=== PATIENT | female | born 1995 | race Caucasian/White ===

== ENCOUNTER 2016-08-19 08:21 | Emergency (ER) | payer OTHER ==
[~2016-08-19] VITALS: Ht 157.5 cm; Wt 48.0 kg
[2016-08-19 08:24] VITALS: BP 118/69; PULSE 114; RESP 20; TEMP 98.8; O2SAT 95
--- NOTE | 2016-08-19 08:55 | PD ---
HPI Chief Complaint: ENT Complaint Time Seen by Provider: 08:54 Travel History International Travel<30 days: No Contact w/Intl Traveler<30days: No Traveled to known affect area: No History of Present Illness HPI 20-year-old female presents to the emergency department for evaluation of sore throat, cough, chest congestion and nausea for 2 days. Patient states that she had subjective fever yesterday. She is also complaining of pressure and congestion in her chest. Denies any recent travel or sick contacts. Denies any vomiting, diarrhea, constipation, dysuria, ear pain, eye redness or drainage. Denies , states that she is a virgin. No other complaints. PFSH Past Medical History ?: Not LMP: 07/18/16 Social History Tobacco Use: No Allergies-Medications (Allergen,Severity, Reaction): Coded Allergies: No Known Allergies (Unverified , 08/19/16) Reported Meds & Prescriptions Reported Meds & Active Scripts Active No Active Prescriptions or Reported Medications Review of Systems Except as stated in HPI: all other systems reviewed are Neg Physical Exam Narrative GENERAL: Well-nourished and well-developed pleasant female patient in no acute distress who is nontoxic appearing. SKIN: Warm and dry. HEAD: Normocephalic and atraumatic. EYES: No injection, drainage, or hyphema noted. PERRLA. EOMI. ENT: No nasal drainage noted. Oropharynx shows mildly edematous tonsils, no erythema or exudates. TMs are normal with good landmarks. NECK: Supple and the trachea is midline. CARDIOVASCULAR: Regular rate and rhythm. RESPIRATORY: Breath sounds are equal bilaterally with no accessory muscle use, wheezing, rhonchi, or crackles. GASTROINTESTINAL: Abdomen is soft, non-tender, and nondistended. MUSCULOSKELETAL: No obvious deformities, swelling, cyanosis, or ecchymosis is present throughout the upper and lower extremities. NEUROLOGICAL: Awake, alert, and oriented. Normal speech and gait. Cranial nerves are grossly intact. Data Data Last Documented VS Vital Signs Date Time Temp Pulse Resp B/P Pulse Ox O2 Delivery O2 Flow Rate FiO2 08/19/16 08:24 98.8 114 20 118/69 95 Room Air Orders Chest, Pa & Lat (08/19/16 08:54) Group A Rapid Strep Screen (08/19/16 08:54) Influenzae A/B Antigen (08/19/16 08:54) Strep Culture (Group A) (08/19/16 09:00) MDM Medical Decision Making Medical Screen Exam Complete: Yes Emergency Medical Condition: Yes Differential Diagnosis Viral illness versus URI versus influenza versus strep Narrative Course 20-year-old female presents to the emergency department for evaluation of cough and sore throat for 2 days. Patient is afebrile. She is a little tachycardic with a heart rate of 114 bpm. Physical examination is essentially unremarkable. Influenza swab is negative. Strep swab was negative. Chest x-ray is negative for any acute abnormalities. Discussed with care with the patient. Advised follow-up with her PCP. She stable for discharge. Diagnosis Primary Impression: Viral respiratory illness Referrals: Primary Care Physician Patient Instructions: General Instructions, Viral Syndrome (ED) Additional Instructions: Rest. Drink plenty of fluids. Take [id number] Tylenol or ibuprofen and estrogen on the box as needed for pain. Follow-up with your Primary Care Physician. Return to the ED for any acute worsening of symptoms. Med/Other Pt SpecificInfo: No Change to Meds Scripts No Active Prescriptions or Reported Meds Disposition: 01 DISCHARGE HOME Condition: Stable Arcelia Foreman Aug 19, 2016 08:55
--- NOTE | 2016-08-19 10:01 | RADRPT ---
EXAM DATE/TIME: 08/19/2016 09:26 [facility] COMPARISON: No previous studies available for comparison. INDICATIONS : Cough for 2 days. MEDICAL HISTORY : None. SURGICAL HISTORY : None. ENCOUNTER: Initial ACUITY: 2 days PAIN SCORE: 0/10 LOCATION: Bilateral chest FINDINGS: PA and lateral views of the chest demonstrate the lungs to be symmetrically aerated without evidence of mass, infiltrate or effusion. The cardiomediastinal contours are unremarkable. Osseous structure s are intact. CONCLUSION: No acute disease. Fito Putnam MD on August 19, 2016 at 10:00 Board Certified Radiologist. This report was verified electronically.
== END 2016-08-19 10:36 | disposition home or self-care (01) ==
LOC: NED 08:21 → NEPB 10:36
DX: B34.9 Viral infection, unspecified (principal)
CPT/HCPCS: 71020; 87081; 87804; 87880; 99283